=== PATIENT | female | born 1945 | race Caucasian/White ===

== ENCOUNTER → 2019-06-13 | Outpatient (CLI) | payer MEDICARE ==
[~2019-06-13] MED LIST: CALCIUM CHEW PO; ULTRAM50 MG PO; VITAMIN D PO; Z.0.LEVOTHYROXINE100 PO; [UNRECOGNIZED DRUG - OTHER]
--- NOTE | 2019-06-26 11:10 | Diagnostic Imaging Report ---
#[id number] - [id number] #BILATERAL DIGITAL SCREENING MAMMOGRAM WITH CAD: 06/13/2019 CLINICAL: Routine screening. No prior exams were available for comparison. Current study contains 5 films. There are scattered fibroglandular elements in both breasts. Current study was also evaluated with a Computer Aided Detection (CAD) system. Benign appearing calcifications are noted bilaterally. No significant masses, calcifications, or other findings are seen in either breast. IMPRESSION: BENIGN There is no mammographic evidence of malignancy. A 1 year screening mammogram is recommended. The patient will be notified by letter of the results. MALIHA WONG M.D. ct/penrad:06/23/2019 17:33:52 [employer]: Christina WEBB(R)(M), [facility] letter sent: Normal Exam Mammogram BI-RADS: 2 Benign
== END ==
LOC: MAMMO 07:46
PROVIDERS: ATTEND Internal Medicine
DX: Z12.31 Encounter for screening mammogram for malignant neoplasm of breast (principal)
CPT/HCPCS: 77067

== ENCOUNTER → 2020-06-24 | Outpatient (CLI) | payer MEDICARE ==
--- NOTE | 2020-06-24 11:27 | Diagnostic Imaging Report ---
Exam: Left hand 3 views History: Pain Comparison: None. Findings: No fracture or malalignment. Narrowing of the interphalangeal joints and first CMC joint. No abnormal soft tissue calcification or soft tissue defect. Impression: No acute osseous abnormality Mild osteoarthrosis of the hand Signed by: Dr. Chris Britton M.D. on 06/24/2020 11:23 AM
== END ==
LOC: RAD 10:40
PROVIDERS: ATTEND Internal Medicine
DX: M79.642 Pain in left hand (principal)

== ENCOUNTER → 2020-09-01 | Outpatient (CLI) | payer MEDICARE | LOC: MAMMO 09:21 | PROVIDERS: ATTEND Internal Medicine | DX: Z12.31 Encounter for screening mammogram for malignant neoplasm of breast (principal) | CPT/HCPCS: 77067 ==

== ENCOUNTER → 2021-07-06 | Day surgery (SDC) | payer MEDICARE, OTHER ==
[2021-06-14 09:17] LABS: BASOPHILS # (AUTO) 0.1 (0.0-0.1); BASOPHILS % 1.1 % (0.0-1.0); EOSINOPHILS # (AUTO) 0.4 (0.0-0.4); EOSINOPHILS % 5.5 % (0.0-6.0); HEMATOCRIT 40.9 % (34.2-44.1); HEMOGLOBIN 12.3 g/dL (12.0-16.0); LYMPHOCYTES # (AUTO) 2.5 (1.0-3.2); LYMPHOCYTES % 39.8 % (18.0-39.1); MEAN CORPUSCULAR HEMOGLOBIN 29.1 pg (28-32); MEAN CORPUSCULAR HGB CONC 30.1 g/dL (31-35); MEAN CORPUSCULAR VOLUME 96.7 fL (81-99); MONOCYTES # (AUTO) 0.6 (0.2-0.8); MONOCYTES % 9.7 % (4.4-11.3); NEUTROPHILS # (AUTO) 2.8 (2.1-6.9); NEUTROPHILS % 43.7 % (38.7-80.0); PLATELET COUNT 203 x10e3/uL (140-360); RED BLOOD COUNT 4.23 x10e6/uL (3.6-5.1); RED CELL DISTRIBUTION WIDTH 12.7 % (11.7-14.4)
[~2021-07-06] MED LIST changes: +ALBUTEROL SULFAT4 MG; +ATORVASTATIN CA10 MG PO; +BREO ELLIPTA 11 EACH INH; +FUROSEMIDE20 MG; +METFORMIN HCL500 MG PO; +NEURONTIN300 MG PO
[2021-07-06 13:24] VITALS: BP 153/75
== END | disposition home or self-care (01) ==
LOC: OR 08:47
PROVIDERS: ATTEND Internal Medicine Gastroenterology
DX: Z09 Encounter for follow-up examination after completed treatment for conditions other than malignant neoplasm (principal); D12.2 Benign neoplasm of ascending colon; K64.8 Other hemorrhoids; E11.9 Type 2 diabetes mellitus without complications; J44.9 Chronic obstructive pulmonary disease, unspecified; Z01.810 Encounter for preprocedural cardiovascular examination; Z01.812 Encounter for preprocedural laboratory examination; Z01.818 Encounter for other preprocedural examination; Z20.822 Contact with and (suspected) exposure to COVID-19; Z99.81 Dependence on supplemental oxygen; Z79.84 Long term (current) use of oral hypoglycemic drugs
CPT/HCPCS: 36415 ×2; 45380; 45384; 45385; 71046; 82948; 85025; 93005; U0002 ×2; 45378

== ENCOUNTER → 2022-12-15 | Outpatient (CLI) | payer MEDICARE | LOC: RAD 10:20 | PROVIDERS: ATTEND Internal Medicine Critical Care Medicine | DX: J44.9 Chronic obstructive pulmonary disease, unspecified (principal) | CPT/HCPCS: 71046 ==

== ENCOUNTER 2023-08-20 07:36 | Inpatient (IN) | payer MEDICARE ==
[~2023-08-20] VITALS: Ht 157.5 cm; Wt 67.3 kg
[2023-08-20 08:48] LABS: BASOPHILS # (AUTO) 0.1 (0.0-0.1); BASOPHILS % 0.8 % (0.0-1.0); EOSINOPHILS # (AUTO) 0.3 (0.0-0.4); EOSINOPHILS % 4.5 % (0.0-6.0); HEMATOCRIT 38.4 % (34.2-44.1); HEMOGLOBIN 12.6 g/dL (12.0-16.0); LYMPHOCYTES # (AUTO) 1.8 (1.0-3.2); LYMPHOCYTES % 29.1 % (18.0-39.1); MEAN CORPUSCULAR HEMOGLOBIN 29.4 pg (28-32); MEAN CORPUSCULAR HGB CONC 32.8 g/dL (31-35); MEAN CORPUSCULAR VOLUME 89.5 fL (81-99); MONOCYTES # (AUTO) 0.6 (0.2-0.8); MONOCYTES % 9.9 % (4.4-11.3); NEUTROPHILS # (AUTO) 3.4 (2.1-6.9); NEUTROPHILS % 55.5 % (38.7-80.0); PLATELET COUNT 214 x10e3/uL (140-360); RED BLOOD COUNT 4.29 x10e6/uL (3.6-5.1); RED CELL DISTRIBUTION WIDTH 12.6 % (11.7-14.4); WHITE BLOOD COUNT 6.04 x10e3/uL (4.8-10.8)
[2023-08-20 09:01] LABS: INR 0.85; PROTHROMBIN TIME 12.1 seconds (11.9-14.5)
[2023-08-20 09:02] LABS: PARTIAL THROMBOPLASTIN TIME 21.7 seconds (23.8-35.5)
[2023-08-20] MEDS ORDERED: SODIUM CHLORIDE 0.9% 250ML 250 ML ONE (09:29)
[2023-08-20] MEDS ORDERED: MIDAZOLAM HCL 2 MG/2 ML VIAL ONE (09:29)
[2023-08-20] MEDS ORDERED: FENTANYL CITRATE/PF 100MCG/2 ML INJ ONE ×2 (09:29→11:01)
[2023-08-20] MEDS ORDERED: LIDOCAINE HCL 1% LOCAL INJ 20 ML VIAL ONE (09:44)
[2023-08-20] MEDS ORDERED: TRAMADOL HCL 50 MG TAB ONE (12:53)
[2023-08-20] MEDS ORDERED: GABAPENTIN400 MG PO (18:00)
[2023-08-20] MEDS ORDERED: ALBUTEROL INH (18:00)
[2023-08-20] MEDS ORDERED: ATORVASTATIN CA20 MG PO (18:00)
[2023-08-20] MEDS ORDERED: ALBUTEROL2.5 MG/3 M INH (18:00)
[2023-08-20] MEDS ORDERED: LEVOTHYROXINE112 MCG PO (18:00)
[2023-08-20 18:27] VITALS: BP 153/55; PULSE 84; RESP 22; TEMP 98.9; O2SAT 99
[2023-08-20 18:28] VITALS: BP 153/55; PULSE 84; RESP 22; TEMP 98.9; O2SAT 99
[2023-08-20] MEDS ORDERED: Morphine 2mg Syringe 2 MG/ML SYR IV PRN (18:30)
[2023-08-20] MEDS ORDERED: ONDANSETRON HCL INJ 2MG/ML 2ML 2 MG/ML VIAL IV PRN (18:45)
[2023-08-20] MEDS ORDERED: ACETAMINOPHEN 325 MG TAB PO PRN (18:45)
[2023-08-20] MEDS ORDERED: HYDRALAZINE HCL 20 MG/ML VIAL IV PRN (18:45)
[2023-08-20] MEDS ORDERED: POLYETHYLENE GLYCOL 3350 17 GM PACK PO PRN (18:45)
[2023-08-20] MEDS ORDERED: ACETAMINOPHEN/CODEINE 300MG - 30MG TAB PO PRN (18:45)
[2023-08-20] MEDS ORDERED: ALBUTEROL INH PRN (20:15)
[2023-08-20 20:34] VITALS: BP 154/64; PULSE 84; RESP 20; TEMP 98.6; O2SAT 98
[2023-08-20] MEDS: ATORVASTATIN 20 MG TAB PO SCH (20:36)
[2023-08-20] MEDS: GABAPENTIN 400 MG CAP PO SCH (20:37)
[2023-08-21] VITALS (11 sets, daily range): BP systolic 118–157; BP diastolic 53–84; PULSE 71–104; RESP 16–21; TEMP 97.5–99.1; O2SAT 95–100
[2023-08-21] MEDS: LEVOTHYROXINE SODIUM 112 MCG TAB PO SCH (05:24)
[2023-08-21 06:29] LABS: ALBUMIN 3.4 g/dL (3.5-5.0); ALBUMIN/GLOBULIN RATIO 1.1 (0.8-2.0); CREATININE, SERUM 0.78 mg/dL (0.57-1.11); PHOSPHORUS 3.8 MG/DL (2.3-4.7)
[2023-08-21] MEDS: GABAPENTIN 400 MG CAP PO SCH ×3 (07:39→20:22)
[2023-08-21] MEDS: DOCUSATE SODIUM 100 MG CAP PO SCH ×2 (07:40→16:08)
[2023-08-21] MEDS: FAMOTIDINE 20 MG TAB PO SCH ×2 (07:40→16:08)
[2023-08-21] MEDS: TRAMADOL HCL 50 MG TAB PO PRN ×2 (07:40→16:09)
[2023-08-21] MEDS: NON-FORMULARY MEDICATION (Fluticasone/Vilanterol (Breo Ellipta 100-25 Mcg INH) 1 INH) INH SCH (09:00)
[2023-08-21] MEDS: ALBUTEROL SULF 0.083% NEB SOLN 3 ML NEB INH PRN ×3 (10:02→19:52)
[2023-08-21] MEDS ORDERED: LIDOCAINE HCL 2% LOCAL INJ 5 ML SDV VIAL INJ ONE (12:13)
[2023-08-21] MEDS ORDERED: PROPOFOL IV EMULSION 10 MG/ML 20 ML VIAL ONE (12:13)
[2023-08-21] MEDS ORDERED: levothyroxine PO (17:06)
[2023-08-21] MEDS ORDERED: AMITRIPTYLINE H25 MG PO (17:06)
[2023-08-21] MEDS ORDERED: lidocaine patch TOP (17:12)
[2023-08-21] MEDS ORDERED: FUROSEMIDE40 MG PO (17:12)
[2023-08-21] MEDS ORDERED: diclofenac gel TOP (17:12)
[2023-08-21] MEDS ORDERED: LIDOCAINE TOP PRN (17:15)
[2023-08-21] MEDS ORDERED: FUROSEMIDE 20 MG TAB PO PRN (17:15)
[2023-08-21] MEDS: AMITRIPTYLINE HCL 25 MG TAB PO SCH (20:22)
[2023-08-21] MEDS: ATORVASTATIN 20 MG TAB PO SCH (20:23)
[2023-08-22] VITALS (12 sets, daily range): BP systolic 107–168; BP diastolic 42–69; PULSE 74–94; RESP 17–20; TEMP 98.3–99.2; O2SAT 97–100
[2023-08-22] MEDS: LEVOTHYROXINE SODIUM 112 MCG TAB PO SCH (05:26)
[2023-08-22] MEDS: GABAPENTIN 400 MG CAP PO SCH ×3 (08:17→21:41)
[2023-08-22] MEDS: DOCUSATE SODIUM 100 MG CAP PO SCH ×2 (08:17→17:43)
[2023-08-22] MEDS: FAMOTIDINE 20 MG TAB PO SCH ×2 (08:18→17:43)
[2023-08-22] MEDS: NON-FORMULARY MEDICATION (Fluticasone/Vilanterol (Breo Ellipta 100-25 Mcg INH) 1 INH) INH SCH (09:00)
[2023-08-22] MEDS: TRAMADOL HCL 50 MG TAB PO PRN (15:09)
[2023-08-22] MEDS: AMITRIPTYLINE HCL 25 MG TAB PO SCH (21:41)
[2023-08-22] MEDS: ATORVASTATIN 20 MG TAB PO SCH (21:42)
[2023-08-23] VITALS (21 sets, daily range): BP systolic 115–198; BP diastolic 42–92; PULSE 73–125; RESP 18–29; TEMP 97.5–98.4; O2SAT 91–100
[2023-08-23] MEDS: ALBUTEROL SULF 0.083% NEB SOLN 3 ML NEB INH PRN ×3 (02:45→11:08)
[2023-08-23] MEDS: LEVOTHYROXINE SODIUM 112 MCG TAB PO SCH (06:06)
[2023-08-23 08:18] LABS: BASOPHILS % 0.1 % (0.0-1.0); EOSINOPHILS % 0.5 % (0.0-6.0); HEMATOCRIT 34.5 % (34.2-44.1); HEMOGLOBIN 11.1 g/dL (12.0-16.0); LYMPHOCYTES # (AUTO) 1.4 (1.0-3.2); LYMPHOCYTES % 18.2 % (18.0-39.1); MEAN CORPUSCULAR HEMOGLOBIN 29.4 pg (28-32); MEAN CORPUSCULAR HGB CONC 32.2 g/dL (31-35); MEAN CORPUSCULAR VOLUME 91.3 fL (81-99); MONOCYTES # (AUTO) 0.4 (0.2-0.8); MONOCYTES % 4.9 % (4.4-11.3); NEUTROPHILS # (AUTO) 5.9 (2.1-6.9); PLATELET COUNT 177 x10e3/uL (140-360); RED BLOOD COUNT 3.78 x10e6/uL (3.6-5.1); RED CELL DISTRIBUTION WIDTH 12.5 % (11.7-14.4); WHITE BLOOD COUNT 7.76 x10e3/uL (4.8-10.8)
[2023-08-23 08:37] LABS: ANION GAP 12.1 mmol/L (8-16); CALCIUM 9.1 mg/dL (8.4-10.2); CREATININE, SERUM 0.83 mg/dL (0.57-1.11); POTASSIUM 4.1 mmol/L (3.5-5.1)
[2023-08-23] MEDS: NON-FORMULARY MEDICATION (Fluticasone/Vilanterol (Breo Ellipta 100-25 Mcg INH) 1 INH) INH SCH (09:00)
[2023-08-23] MEDS: GABAPENTIN 400 MG CAP PO SCH ×3 (09:57→22:54)
[2023-08-23] MEDS: DOCUSATE SODIUM 100 MG CAP PO SCH ×2 (09:57→17:00)
[2023-08-23] MEDS: FAMOTIDINE 20 MG TAB PO SCH ×2 (09:59→16:30)
[2023-08-23] MEDS ORDERED: METHYLPREDNISOLONE SOD SUCC 40 MG/ML VIAL 1ML IV ONE (10:45)
[2023-08-23] MEDS ORDERED: ONDANSETRON HCL 4 MG ORAL DISINTEGRATING TAB PO PRN (11:30)
[2023-08-23] MEDS: ALBUTEROL SULF 0.083% NEB SOLN 3 ML NEB INH SCH ×3 (16:20→22:46)
[2023-08-23] MEDS: ATORVASTATIN 20 MG TAB PO SCH (22:54)
[2023-08-23] MEDS: AMITRIPTYLINE HCL 25 MG TAB PO SCH (22:54)
[2023-08-24] VITALS (36 sets, daily range): BP systolic 105–172; BP diastolic 47–86; PULSE 77–100; RESP 10–26; TEMP 97.9–98.8; O2SAT 86–100
[2023-08-24] MEDS: TRAMADOL HCL 50 MG TAB PO PRN ×3 (01:19→20:54)
[2023-08-24] MEDS: ALBUTEROL SULF 0.083% NEB SOLN 3 ML NEB INH SCH ×6 (02:05→23:31)
[2023-08-24] MEDS: LEVOTHYROXINE SODIUM 112 MCG TAB PO SCH (05:59)
[2023-08-24] MEDS: FAMOTIDINE 20 MG TAB PO SCH ×2 (07:46→15:55)
[2023-08-24] MEDS: NON-FORMULARY MEDICATION (Fluticasone/Vilanterol (Breo Ellipta 100-25 Mcg INH) 1 INH) INH SCH (09:00)
[2023-08-24] MEDS: DOCUSATE SODIUM 100 MG CAP PO SCH ×2 (09:21→16:00)
[2023-08-24] MEDS: GABAPENTIN 400 MG CAP PO SCH ×3 (09:21→20:53)
[2023-08-24] MEDS ORDERED: LIDOCAINE HCL 1% LOCAL INJ 20 ML VIAL ONE (12:45)
[2023-08-24] MEDS ORDERED: FENTANYL CITRATE/PF 100MCG/2 ML INJ ONE (13:08)
[2023-08-24] MEDS ORDERED: MIDAZOLAM HCL 2 MG/2 ML VIAL ONE (13:08)
[2023-08-24] MEDS: LIDOCAINE 4% PATCH TP PRN (16:21)
[2023-08-24] MEDS: ATORVASTATIN 20 MG TAB PO SCH (20:53)
[2023-08-24] MEDS: AMITRIPTYLINE HCL 25 MG TAB PO SCH (20:53)
[2023-08-25] VITALS (35 sets, daily range): BP systolic 86–155; BP diastolic 46–133; PULSE 70–99; RESP 10–28; TEMP 97.6–99.2; O2SAT 87–100
[2023-08-25] MEDS: ALBUTEROL SULF 0.083% NEB SOLN 3 ML NEB INH SCH ×6 (03:19→23:26)
[2023-08-25] MEDS: LEVOTHYROXINE SODIUM 112 MCG TAB PO SCH (06:02)
[2023-08-25] MEDS: TRAMADOL HCL 50 MG TAB PO PRN (06:03)
[2023-08-25] MEDS: NON-FORMULARY MEDICATION (Fluticasone/Vilanterol (Breo Ellipta 100-25 Mcg INH) 1 INH) INH SCH ×2 (09:00→10:10)
[2023-08-25] MEDS: FAMOTIDINE 20 MG TAB PO SCH ×2 (10:08→16:00)
[2023-08-25] MEDS: DOCUSATE SODIUM 100 MG CAP PO SCH ×2 (10:08→16:00)
[2023-08-25] MEDS: GABAPENTIN 400 MG CAP PO SCH ×3 (10:08→20:34)
[2023-08-25] MEDS: ATORVASTATIN 20 MG TAB PO SCH (20:34)
[2023-08-25] MEDS: AMITRIPTYLINE HCL 25 MG TAB PO SCH (20:34)
[2023-08-26] VITALS (40 sets, daily range): BP systolic 86–150; BP diastolic 41–75; PULSE 73–98; RESP 10–26; TEMP 97.9–98.4; O2SAT 91–100
[2023-08-26] MEDS: ALBUTEROL SULF 0.083% NEB SOLN 3 ML NEB INH SCH ×5 (03:24→19:37)
[2023-08-26] MEDS: LEVOTHYROXINE SODIUM 112 MCG TAB PO SCH (05:25)
[2023-08-26] MEDS: NON-FORMULARY MEDICATION (Fluticasone/Vilanterol (Breo Ellipta 100-25 Mcg INH) 1 INH) INH SCH (08:36)
[2023-08-26] MEDS: DOCUSATE SODIUM 100 MG CAP PO SCH ×2 (08:36→17:06)
[2023-08-26] MEDS: GABAPENTIN 400 MG CAP PO SCH ×3 (08:36→20:26)
[2023-08-26] MEDS: FAMOTIDINE 20 MG TAB PO SCH ×2 (08:36→17:06)
[2023-08-26] MEDS: TRAMADOL HCL 50 MG TAB PO PRN ×3 (12:56→20:57)
[2023-08-26] MEDS: LIDOCAINE 4% PATCH TP PRN (14:02)
[2023-08-26] MEDS: ATORVASTATIN 20 MG TAB PO SCH (20:26)
[2023-08-26] MEDS: AMITRIPTYLINE HCL 25 MG TAB PO SCH (20:26)
[2023-08-27] VITALS (37 sets, daily range): BP systolic 73–166; BP diastolic 40–101; PULSE 79–118; RESP 11–44; TEMP 97.6–99.4; O2SAT 91–100
[2023-08-27] MEDS: ALBUTEROL SULF 0.083% NEB SOLN 3 ML NEB INH SCH ×7 (00:07→23:25)
[2023-08-27 05:09] LABS: BASOPHILS % 0.4 % (0.0-1.0); EOSINOPHILS # (AUTO) 0.1 (0.0-0.4); EOSINOPHILS % 1.5 % (0.0-6.0); HEMOGLOBIN 10.9 g/dL (12.0-16.0); LYMPHOCYTES # (AUTO) 1.1 (1.0-3.2); LYMPHOCYTES % 14.3 % (18.0-39.1); MEAN CORPUSCULAR HEMOGLOBIN 29.3 pg (28-32); MEAN CORPUSCULAR HGB CONC 32.1 g/dL (31-35); MEAN CORPUSCULAR VOLUME 91.4 fL (81-99); MONOCYTES # (AUTO) 0.5 (0.2-0.8); MONOCYTES % 6.6 % (4.4-11.3); NEUTROPHILS # (AUTO) 6.1 (2.1-6.9); NEUTROPHILS % 76.9 % (38.7-80.0); PLATELET COUNT 190 x10e3/uL (140-360); RED BLOOD COUNT 3.72 x10e6/uL (3.6-5.1); RED CELL DISTRIBUTION WIDTH 12.6 % (11.7-14.4); WHITE BLOOD COUNT 7.89 x10e3/uL (4.8-10.8)
[2023-08-27 05:27] LABS: ALBUMIN 3.2 g/dL (3.5-5.0); ANION GAP 12.2 mmol/L (8-16); CALCIUM 8.9 mg/dL (8.4-10.2); CREATININE, SERUM 1.01 mg/dL (0.57-1.11); POTASSIUM 4.2 mmol/L (3.5-5.1)
[2023-08-27] MEDS: LEVOTHYROXINE SODIUM 112 MCG TAB PO SCH (06:00)
[2023-08-27] MEDS: FAMOTIDINE 20 MG TAB PO SCH ×2 (07:30→16:13)
[2023-08-27] MEDS: NON-FORMULARY MEDICATION (Fluticasone/Vilanterol (Breo Ellipta 100-25 Mcg INH) 1 INH) INH SCH (09:00)
[2023-08-27] MEDS: DOCUSATE SODIUM 100 MG CAP PO SCH ×2 (09:00→16:13)
[2023-08-27] MEDS: GABAPENTIN 400 MG CAP PO SCH ×3 (09:00→20:46)
[2023-08-27] MEDS ORDERED: LIDOCAINE HCL 4% 50 ML BTL ONE (09:24)
[2023-08-27] MEDS ORDERED: PROPOFOL IV EMULSION 10 MG/ML 20 ML VIAL ONE (11:44)
[2023-08-27] MEDS ORDERED: LIDOCAINE HCL 2% LOCAL INJ 5 ML SDV VIAL INJ ONE (11:44)
[2023-08-27] MEDS ORDERED: FENTANYL CITRATE/PF 100MCG/2 ML INJ ONE (14:23)
[2023-08-27] MEDS ORDERED: METOPROLOL TARTRATE INJ 1 MG/ML VIAL IV ONE (20:00)
[2023-08-27] MEDS: AMITRIPTYLINE HCL 25 MG TAB PO SCH (20:45)
[2023-08-27] MEDS: ATORVASTATIN 20 MG TAB PO SCH (20:46)
[2023-08-28] VITALS (31 sets, daily range): BP systolic 73–158; BP diastolic 42–74; PULSE 76–97; RESP 15–29; TEMP 97.7–99; O2SAT 93–100
[2023-08-28] MEDS: ALBUTEROL SULF 0.083% NEB SOLN 3 ML NEB INH SCH ×6 (03:28→23:53)
[2023-08-28] MEDS: LEVOTHYROXINE SODIUM 112 MCG TAB PO SCH (06:11)
[2023-08-28] MEDS: FAMOTIDINE 20 MG TAB PO SCH ×2 (08:04→16:31)
[2023-08-28] MEDS: DOCUSATE SODIUM 100 MG CAP PO SCH ×3 (08:04→21:00)
[2023-08-28] MEDS: ENOXAPARIN SOD INJ 40 MG/0.4 ML SYR SC SCH (09:27)
[2023-08-28] MEDS: NON-FORMULARY MEDICATION (Fluticasone/Vilanterol (Breo Ellipta 100-25 Mcg INH) 1 INH) INH SCH (11:15)
[2023-08-28] MEDS: POLYETHYLENE GLYCOL 3350 17 GM PACK PO SCH (17:09)
[2023-08-28] MEDS: ATORVASTATIN 20 MG TAB PO SCH (21:18)
[2023-08-28] MEDS: AMITRIPTYLINE HCL 25 MG TAB PO SCH (21:19)
[2023-08-29] VITALS (27 sets, daily range): BP systolic 85–159; BP diastolic 43–131; PULSE 76–98; RESP 11–28; TEMP 97.9–98.9; O2SAT 98–100
[2023-08-29] MEDS: ALBUTEROL SULF 0.083% NEB SOLN 3 ML NEB INH SCH ×6 (03:20→23:31)
[2023-08-29 05:49] LABS: BASOPHILS % 0.4 % (0.0-1.0); EOSINOPHILS # (AUTO) 0.2 (0.0-0.4); EOSINOPHILS % 2.1 % (0.0-6.0); HEMATOCRIT 34.9 % (34.2-44.1); HEMOGLOBIN 11.1 g/dL (12.0-16.0); LYMPHOCYTES # (AUTO) 1.3 (1.0-3.2); MEAN CORPUSCULAR HEMOGLOBIN 29.4 pg (28-32); MEAN CORPUSCULAR HGB CONC 31.8 g/dL (31-35); MEAN CORPUSCULAR VOLUME 92.3 fL (81-99); MONOCYTES # (AUTO) 0.7 (0.2-0.8); NEUTROPHILS % 72.3 % (38.7-80.0); PLATELET COUNT 178 x10e3/uL (140-360); RED BLOOD COUNT 3.78 x10e6/uL (3.6-5.1); RED CELL DISTRIBUTION WIDTH 12.5 % (11.7-14.4); WHITE BLOOD COUNT 8.26 x10e3/uL (4.8-10.8)
[2023-08-29 06:13] LABS: ALBUMIN 3.1 g/dL (3.5-5.0); ALBUMIN/GLOBULIN RATIO 0.8 (0.8-2.0); ANION GAP 13.1 mmol/L (8-16); CALCIUM 9.3 mg/dL (8.4-10.2); CREATININE, SERUM 0.79 mg/dL (0.57-1.11); POTASSIUM 4.1 mmol/L (3.5-5.1)
[2023-08-29] MEDS: LEVOTHYROXINE SODIUM 112 MCG TAB PO SCH (06:50)
[2023-08-29] MEDS: NON-FORMULARY MEDICATION (Fluticasone/Vilanterol (Breo Ellipta 100-25 Mcg INH) 1 INH) INH SCH (08:17)
[2023-08-29] MEDS: DOCUSATE SODIUM 100 MG CAP PO SCH ×3 (08:17→20:40)
[2023-08-29] MEDS: FAMOTIDINE 20 MG TAB PO SCH ×2 (08:17→16:28)
[2023-08-29] MEDS: POLYETHYLENE GLYCOL 3350 17 GM PACK PO SCH ×2 (08:18→16:28)
[2023-08-29] MEDS: ENOXAPARIN SOD INJ 40 MG/0.4 ML SYR SC SCH (08:30)
[2023-08-29] MEDS: ATORVASTATIN 20 MG TAB PO SCH (20:40)
[2023-08-29] MEDS: AMITRIPTYLINE HCL 25 MG TAB PO SCH (20:40)
[2023-08-30] VITALS (30 sets, daily range): BP systolic 106–166; BP diastolic 49–94; PULSE 81–102; RESP 15–28; TEMP 97.5–99.2; O2SAT 90–100
[2023-08-30] MEDS: ALBUTEROL SULF 0.083% NEB SOLN 3 ML NEB INH SCH ×6 (03:28→23:20)
[2023-08-30] MEDS: LEVOTHYROXINE SODIUM 112 MCG TAB PO SCH (05:18)
[2023-08-30] MEDS: ENOXAPARIN SOD INJ 40 MG/0.4 ML SYR SC SCH (10:28)
[2023-08-30] MEDS: FAMOTIDINE 20 MG TAB PO SCH ×2 (10:28→17:06)
[2023-08-30] MEDS: POLYETHYLENE GLYCOL 3350 17 GM PACK PO SCH ×2 (10:28→17:00)
[2023-08-30] MEDS: DOCUSATE SODIUM 100 MG CAP PO SCH ×3 (10:28→19:52)
[2023-08-30] MEDS: NON-FORMULARY MEDICATION (Fluticasone/Vilanterol (Breo Ellipta 100-25 Mcg INH) 1 INH) INH SCH (10:29)
[2023-08-30] MEDS: ATORVASTATIN 20 MG TAB PO SCH (19:51)
[2023-08-30] MEDS: AMITRIPTYLINE HCL 25 MG TAB PO SCH (19:51)
[2023-08-31] VITALS (24 sets, daily range): BP systolic 96–173; BP diastolic 57–75; PULSE 77–98; RESP 14–25; TEMP 97.7–99.4; O2SAT 87–100
[2023-08-31] MEDS: ALBUTEROL SULF 0.083% NEB SOLN 3 ML NEB INH SCH ×6 (03:18→23:26)
[2023-08-31] MEDS: LEVOTHYROXINE SODIUM 112 MCG TAB PO SCH (05:47)
[2023-08-31] MEDS: POLYETHYLENE GLYCOL 3350 17 GM PACK PO SCH ×2 (08:17→16:21)
[2023-08-31] MEDS: DOCUSATE SODIUM 100 MG CAP PO SCH ×3 (08:17→21:02)
[2023-08-31] MEDS: FAMOTIDINE 20 MG TAB PO SCH ×2 (08:18→16:21)
[2023-08-31] MEDS: NON-FORMULARY MEDICATION (Fluticasone/Vilanterol (Breo Ellipta 100-25 Mcg INH) 1 INH) INH SCH (08:18)
[2023-08-31] MEDS: ENOXAPARIN SOD INJ 40 MG/0.4 ML SYR SC SCH (08:18)
[2023-08-31] MEDS ORDERED: ZOLPIDEM TARTRATE 5 MG TAB PO PRN (19:00)
[2023-08-31] MEDS: MUPIROCIN 2% OINT 22 GM TUBE TOP SCH (21:02)
[2023-08-31] MEDS: ATORVASTATIN 20 MG TAB PO SCH (21:03)
[2023-08-31] MEDS: AMITRIPTYLINE HCL 25 MG TAB PO SCH (21:03)
[2023-09-01] VITALS (15 sets, daily range): BP systolic 121–152; BP diastolic 59–106; PULSE 72–94; RESP 15–23; TEMP 97.8–98.2; O2SAT 96–100
[2023-09-01] MEDS: ALBUTEROL SULF 0.083% NEB SOLN 3 ML NEB INH SCH ×5 (03:00→18:22)
[2023-09-01] MEDS: LEVOTHYROXINE SODIUM 112 MCG TAB PO SCH (06:00)
[2023-09-01] MEDS: POLYETHYLENE GLYCOL 3350 17 GM PACK PO SCH ×2 (09:00→17:00)
[2023-09-01] MEDS: NON-FORMULARY MEDICATION (Fluticasone/Vilanterol (Breo Ellipta 100-25 Mcg INH) 1 INH) INH SCH (09:04)
[2023-09-01] MEDS: ENOXAPARIN SOD INJ 40 MG/0.4 ML SYR SC SCH (09:04)
[2023-09-01] MEDS: FAMOTIDINE 20 MG TAB PO SCH ×2 (09:04→17:02)
[2023-09-01] MEDS: DOCUSATE SODIUM 100 MG CAP PO SCH ×2 (09:04→17:02)
[2023-09-01] MEDS: MUPIROCIN 2% OINT 22 GM TUBE TOP SCH (11:11)
[2023-09-01] MEDS ORDERED: MUPIROCIN22 GM TOP (17:29)
[2023-09-01] MEDS ORDERED: COLACE100 M1 PO (17:29)
[2023-09-01] MEDS ORDERED: ONDANSETRON ODT4 MG PO (17:29)
[2023-09-01] MEDS ORDERED: ACETAMINOPHEN325 M1 PO (17:29)
[2023-09-01] MEDS ORDERED: MIRALAX17 GM PO (17:29)
== END 2023-09-01 19:45 | disposition home or self-care (01) | DRG 199 ==
LOC: CT 07:36 → ERHOLD 17:03 → MED/SURG3 17:33 → OBSVTOIN 08-21 08:49 → ICU 08-23 18:41
PROVIDERS: ADMIT Internal Medicine; ATTEND Internal Medicine
PROC: 0W9930Z Drainage of Right Pleural Cavity with Drainage Device, Percutaneous Approach (ICD-10-PCS; principal; 2023-08-20)
PROC: 0BBK3ZX Excision of Right Lung, Percutaneous Approach, Diagnostic (ICD-10-PCS; 2023-08-20)
PROC: 0W29X0Z Change Drainage Device in Right Pleural Cavity, External Approach (ICD-10-PCS; 2023-08-22)
PROC: 0W9930Z Drainage of Right Pleural Cavity with Drainage Device, Percutaneous Approach (ICD-10-PCS; 2023-08-24)
DX: J95.811 Postprocedural pneumothorax (principal); J96.21 Acute and chronic respiratory failure with hypoxia; A31.0 Pulmonary mycobacterial infection; E46 Unspecified protein-calorie malnutrition; J44.1 Chronic obstructive pulmonary disease with (acute) exacerbation; J98.11 Atelectasis; Z66 Do not resuscitate; Z99.81 Dependence on supplemental oxygen; R91.1 Solitary pulmonary nodule; Z68.27 Body mass index [BMI] 27.0-27.9, adult; Y83.8 Other surgical procedures as the cause of abnormal reaction of the patient, or of later complication, without mention of misadventure at the time of the procedure; Y92.89 Other specified places as the place of occurrence of the external cause; M19.90 Unspecified osteoarthritis, unspecified site; G89.29 Other chronic pain; M54.50 Low back pain, unspecified; E03.9 Hypothyroidism, unspecified; E78.5 Hyperlipidemia, unspecified; R53.81 Other malaise; K64.8 Other hemorrhoids; Z86.010 Personal history of colon polyps; Z85.828 Personal history of other malignant neoplasm of skin; Z87.891 Personal history of nicotine dependence; Z79.890 Hormone replacement therapy; Z79.899 Other long term (current) drug therapy; Z20.822 Contact with and (suspected) exposure to COVID-19
CPT/HCPCS: 31622; 32408; 32557; 36415; 71045; 71046; 77012; 80048; 80053; 83735; 84100; 85025; 85610; 85651; 85730; 86021; 86140; 87102; 87116; 87205; 87206; 87335; 88305; 88312; 88342; 94799; 99152; 99153; 99252; C1729; C1769; G0378; J1650; J2001; J2250; J2270; J2405; J2920; J7050; Q0162; U0002